=== PATIENT | female | born 1985 | race Caucasian/White ===

== ENCOUNTER 2024-11-17 02:40 | Emergency (ER) | payer MEDICAID, OTHER ==
[~2024-11-17] VITALS: Ht 165.1 cm; Wt 68.0 kg
[2024-11-17 02:46] VITALS: TEMP 36.8; O2SAT 100
[2024-11-17] MEDS ORDERED: SULF1TAB48 MT (02:59)
[2024-11-17] MEDS ORDERED: CEPH500C2 MT (02:59)
[2024-11-17 03:06] VITALS: BP 141/99; PULSE 105; RESP 14; O2SAT 100
== END 2024-11-17 03:13 | disposition home or self-care (01) ==
LOC: ER 02:40
DX: L02.31 Cutaneous abscess of buttock (principal); Z59.00 Homelessness unspecified
CPT/HCPCS: 99283; Z7610